=== PATIENT | male | born 1955 | race Caucasian/White ===

== ENCOUNTER → 2017-09-22 16:04 | Outpatient (CLI) | payer OTHER, SELFPAY ==
[2017-09-22 16:49] LABS: Calcium 9.2 mg/dL (8.4-10.2); Uric Acid 6.2 mg/dL (3.5-8.5)
[2017-09-24 15:21] LABS: Parathyroid Hormone Int 53 pg/mL (14-64)
== END ==
PROVIDERS: Family Provider Physician Assistant; PCP Physician Assistant; Visit Provider Specialist
DX: N20.0 Calculus of kidney (principal)
CPT/HCPCS: 36415; 82310; 83970; 84550

== ENCOUNTER → 2017-09-26 13:24 | Outpatient (CLI) | payer OTHER, SELFPAY ==
--- NOTE | 2017-09-26 | DI.RAD.S_ITS ---
PROCEDURE: XR KUB INDICATIONS: kidney stones TECHNIQUE: One view of the abdomen acquired. COMPARISON: [facility], , KUB XRAY (1 VIEW ABDOMEN), 07/18/2017, 11:39. FINDINGS: Surgical changes and devices: None. Bowel: Bowel gas pattern is normal. Soft tissues: There is a 4 mm calcification overlying the lower pole of the right kidney. On the second view, there is suggestion of 2 small calcifications over the lower pole of the left kidney. Bones: No suspicious bony lesions. IMPRESSION: Possible bilateral nephrolithiasis. Advise CT KUB for further evaluation if indicated. Dictated by: Tin Campuzano M.D. on 09/26/2017 at 13:40 Approved by: Tin Campuzano M.D. on 09/26/2017 at 13:45
== END ==
PROVIDERS: Family Provider Physician Assistant; PCP Physician Assistant; Visit Provider Specialist
DX: N20.0 Calculus of kidney (principal)
CPT/HCPCS: 74018

== ENCOUNTER → 2017-11-22 16:31 | Outpatient (CLI) | payer OTHER, SELFPAY ==
--- NOTE | 2017-11-22 | DI.RAD.S_ITS ---
PROCEDURE: XR KUB INDICATIONS: KIDNEY STONES TECHNIQUE: One view of the abdomen acquired. COMPARISON: [facility], CR, XR KUB, 09/26/2017, 13:04. FINDINGS: Surgical changes and devices: None. Bowel: Bowel gas pattern is normal. Soft tissues: No suspicious abdominal calcifications are seen on the current study. Previously noted small calcifications in bilateral lower pole kidneys are no longer seen. Visualized solid organ contours appear normal in size. Bones: No suspicious bony lesions. IMPRESSION: No renal calcification is seen on the current study. Dictated by: Luke Toro M.D. on 11/22/2017 at 17:45 Approved by: Luke Toro M.D. on 11/22/2017 at 17:48
[2017-11-22 21:09] LABS: Prostate Specific Antigen 0.629 ng/mL (0.10-4.00)
== END ==
PROVIDERS: Family Provider Physician Assistant; PCP Physician Assistant; Visit Provider Specialist
DX: N40.1 Benign prostatic hyperplasia with lower urinary tract symptoms (principal); N20.0 Calculus of kidney
CPT/HCPCS: 36415; 74018; 84153

== ENCOUNTER → 2018-06-21 15:16 | Outpatient (CLI) | payer OTHER, SELFPAY ==
--- NOTE | 2018-06-21 15:21 | DI.RAD.S_ITS ---
PROCEDURE: XR KUB INDICATIONS: KIDNEY STONES TECHNIQUE: One view of the abdomen acquired. COMPARISON: [facility], CR, XR KUB, 11/22/2017, 16:36. FINDINGS: Surgical changes and devices: None. Bowel: Bowel gas pattern is nonobstructive. Large amount of stool is seen throughout the colon and rectal vault.. Soft tissues: No suspicious abdominal calcifications. Visualized solid organ contours appear normal in size. Presumed pelvic phleboliths are unchanged Bones: No suspicious bony lesions. IMPRESSION: No radiographically visible renal calculi Dictated by: Phogn Garcia M.D. on 06/21/2018 at 16:40 Approved by: Phong Garcia M.D. on 06/21/2018 at 16:43
[2018-06-21 17:32] LABS: Prostate Specific Antigen 0.547 ng/mL (0.10-4.00)
== END ==
PROVIDERS: Family Provider Physician Assistant; PCP Physician Assistant; Visit Provider Specialist
DX: N20.0 Calculus of kidney (principal); N40.1 Benign prostatic hyperplasia with lower urinary tract symptoms
CPT/HCPCS: 36415; 74018; 84153

== ENCOUNTER → 2018-10-24 13:59 | Outpatient (CLI) | payer OTHER, SELFPAY ==
--- NOTE | 2018-10-24 | DI.CT.S_ITS ---
PROCEDURE: CT SOFT TISSUE NECK WO/W CON INDICATIONS: SIALOITHIASIS TECHNIQUE: Before and after the administration of intravenous contrast, 2.0 mm axial sections acquired through the neck and down to the mary. Additional 2.0 mm coronal and sagittal reformats were generated of the contrast enhanced images. For radiation dose reduction, the following was used: automated exposure control. COMPARISON: None. FINDINGS: Image quality: Excellent. Glands: The parotid glands appear symmetric and normal in size and morphology. The right submandibular gland is slightly more prominent in size and demonstrates increased enhancement compared to the contralateral left submandibular gland. The right submandibular duct is mildly dilated. No opaque stones are seen in the right submandibular gland. Deep to the skin marker for the palpable abnormality is a 4 mm enhancing nodule in the right submandibular area, most likely a small submandibular lymph node. There is a 6 x 4 mm low-density nodule in the right thyroid lobe. A 6 mm soft tissue nodule anterior to the left thyroid lobe is probably a parathyroid adenoma. Lymph nodes: No enlarged lymph nodes seen throughout the neck. Small cervical lymph nodes are present bilaterally, likely reactive. Vessels: Visualized vasculature appears patent. Neck spaces: The oropharynx, nasopharynx, and pharynx demonstrate no mucosal lesions. The vocal cords, false vocal cords, pyriform sinuses, epiglottis, vallecula, and tongue base all appear normal. Extramucosal spaces appear unremarkable. Miscellaneous: Visualized lungs appear clear. Superficial soft tissues appear normal. Bones: No suspicious bony lesions. Visualized sinuses and mastoids appear unremarkable. IMPRESSION: 1. No salivary gland stones identified. 2. Slightly enlargement of the right submandibular gland which demonstrates increased enhancement compared to the contralateral left submandibular gland. The right submandibular duct is mildly dilated. It is possible that the patient has recently passed stone. 3. Deep to the skin marker is a 4 mm enhancing nodule adjacent to the right submandibular gland, most likely a small normal sized subcentimeter lymph node. 4. Possible 6 x 4 mm parathyroid adenoma anterior to the left thyroid lobe. Please correlate with serum calcium and parasellar hormone levels. Dictated by: Kumar Thrasher M.D. on 10/24/2018 at 17:00 Approved by: Kumar Thrasher M.D. on 10/24/2018 at 18:09
[2018-10-24 14:30] LABS: BUN Creatinine Ratio 12.7 (6-22); Blood Urea Nitrogen 14 mg/dL (9-20); Estimated Glomerular Filt Rate > 60.0 mL/min (>60)
== END ==
PROVIDERS: PCP Physician Assistant; Visit Provider Otolaryngology Facial Plastic Surgery
DX: K11.5 Sialolithiasis (principal); E04.2 Nontoxic multinodular goiter
CPT/HCPCS: 36415; 70492; 82565; 84520; Q9967

== ENCOUNTER 2020-06-28 14:23 | Emergency (ER) | payer OTHER, MEDICAID, SELFPAY ==
[2020-06-28 14:34] VITALS: BP 111/67; PULSE 57; RESP 16; TEMP 36.8; O2SAT 96; BMI 23.3
--- NOTE | 2020-06-28 14:34 | DI.RAD.S_ITS ---
PROCEDURE: XR KNEE RT 3V INDICATIONS: skiing accident TECHNIQUE: 3 views of the knee were acquired. COMPARISON: None. FINDINGS: Bones: No fractures or dislocations. No suspicious bony lesions. Soft tissues: No joint effusion. No suspicious soft tissue calcifications. IMPRESSION: Normal knee radiographs. Dictated by: Augie Hubbard M.D. on 06/28/2020 at 14:58 Approved by: Augie Hubbard M.D. on 06/28/2020 at 14:58
--- NOTE | 2020-06-28 15:15 | ED_ITS ---
HPI - Extremity Injury (Lower) <TORRIE Torrez - Last Filed: 06/28/20 15:51> General Chief Complaint: Extremity Injury, Lower Stated Complaint: hurt right knee skiing Time Seen by Provider: 06/28/20 14:33 Source: patient Mode of arrival: Family Vehicle Limitations: no limitations History of Present Illness HPI Narrative: This is a 80 year female, nonsmoker, who has past medical history significant for hypothyroidism, kidney stone presents to ED with chief complain of right lateral knee pain. Patient injured right knee while skiing this morning at [employer] when it try to avoid colliding with the child and had right knee externally rotated accidentally. Patient states and minor knee injury in the past with hyper extension but did not require any surgeries. Patient reports pain increases with elevating the affected knee during driving to step on a brake and had to use left leg to press on a pedal. Patient states he was able to stand and bear weight. He had used ibuprofen 600 mg 2 hours before coming into ED and rates pain as 1/10. Patient reports intact sensation in is able to move toes distally. Patient is able to flex and extend knee without difficulty. Related Data Home Medications Medication Instructions Recorded Confirmed beclomethasone dipropionate [Qvar] 1 puff INH BID #0 10/20/10 Grape Seed Extract (#GRAPE SEED) 25 mg PO QDAY #0 04/27/12 omeprazole 40 mg PO QDAY #0 04/27/12 Previous Rx's Medication Instructions Recorded testosterone [AndroGel] 10 % TP Q DAY #60 gm 09/13/12 ondansetron [Zofran ODT] 4 mg SUBLINGUAL Q6HP PRN #10 odt 03/30/17 oxycodone-acetaminophen [Percocet] 1 - 2 tab PO Q6HP PRN #10 tab 03/30/17 tamsulosin [Flomax] 0.4 mg PO QDAY #7 cap 03/30/17 Allergies Allergy/AdvReac Type Severity Reaction Status Date / Time No Known Allergies Allergy Uncoded 06/28/20 14:41 Review of Systems <TORRIE Torrez - Last Filed: 06/28/20 15:51> Review of Systems Narrative: General: Denies fever, chills, fatigue, malaise, sweats. HEENT: Denies sinus pain, ear pain, sore throat, difficulty swallowing, dizziness. Respiratory: Denies dyspnea, cough, wheezing, hemoptysis, sputum. Cardiovascular: Denies chest pain, palpitations, orthopnea, edema. Gastrointestinal: Denies nausea, vomiting, abdominal pain, diarrhea, constipation, melena. : Denies dysuria, frequency, incontinence, hematuria, urinary retention. Musculoskeletal: See HPI Skin: Denies rash, skin lesions, or other. Neurologic: Denies weakness, headache, numbness, change in speech, confusion, seizures, incoordination. Psychiatric: No concerning psychosocial issues. 12-point review of systems is negative except for those stated above. Patient History <TORRIE Torrez - Last Filed: 06/28/20 15:51> Medical History Hypothyroidism Social History Smoking Status: Never smoker Smoking Status: Never smoker alcohol intake frequency: 0-2 drinks per day Alcohol type: beer and wine Substance Use Type: marijuana Exam <TORRIE Torrez - Last Filed: 06/28/20 15:51> Narrative Exam Narrative: General appearance: well developed, well nourished, in no acute distress. Head: normocephalic, atraumatic, no scalp lesions, non-tender. ENT: Hearing grossly intact. Airway patent. Neck/Thyroid: neck supple, full range of motion, no visible masses or meningeal signs. No JVD, non-tender without lymphadenopathy. Skin: no suspicious rashes, lesions over visible areas. Warm and dry and appropriate color for ethnicity. Heart: no clubbing, no cyanosis, no edema. Lungs: Breathing even and unlabored. No stridor. No accessory muscles used. Able to speak in full sentences. Chest: normal shape and expansion. Abdomen: non-obese, non-distended. Neurologic: alert and oriented. Cognitive exam, [employer] and PNS grossly intact on informal exam. Psych: good eye contact, normal affect. Initial Vital Signs Initial Vital Signs: Vital Signs Temperature 98.2 F 06/28/20 14:34 Pulse Rate 57 L 06/28/20 14:34 Respiratory Rate 16 06/28/20 14:34 Blood Pressure 111/67 06/28/20 14:34 Pulse Oximetry 96 06/28/20 14:34 Extrem Right lower extremity: knee Details: normal to inspection, tenderness Location: of the lateral joint line, normal ROM and Rex's Test Details: positive laterally; no swelling, no ecchymosis, no crepitus and no deformity, lower leg Details: normal to inspection; no tenderness and no localized swelling, ankle Details: normal to inspection; no tenderness and foot Details: normal capillary refill, toes with normal ROM, vascular exam Details: dorsalis pedis pulse present and motor-sensory exam Details: light-touch normal <Damien Donato DO - Last Filed: 06/28/20 16:01> Initial Vital Signs Initial Vital Signs: Vital Signs Temperature 98.2 F 06/28/20 14:34 Pulse Rate 57 L 06/28/20 14:34 Respiratory Rate 16 06/28/20 14:34 Blood Pressure 111/67 06/28/20 14:34 Pulse Oximetry 96 06/28/20 14:34 Procedures <TORRIE Torrez - Last Filed: 06/28/20 15:51> Orthopedic Splinting/Casting R knee: Side: right Lower Extremity Injury Location: knee Lower Extremity Immobilizer: Ronnie wrap Post splinting neuro exam: intact Post splinting vascular exam: intact Placed by: Nursing Scores <CASH TorrezP - Last Filed: 06/28/20 15:51> GCS [place] coma scale eye opening: Spontaneous [place] coma scale verbal response: Orientated [place] coma scale motor response: Obey commands [place] coma scale total score: 15 Course <TORRIE Torrez - Last Filed: 06/28/20 15:51> Orders Ordered: ED Orders 06/28/20 14:34 XR knee RT 3V Stat Vital Signs Vital signs: Vital Signs - 8 hr 06/28/20 14:34 06/28/20 15:43 Temperature 98.2 F Pulse Rate 57 L 61 Respiratory Rate 16 Blood Pressure 111/67 134/77 Pulse Oximetry 96 96 <Damien Donato DO - Last Filed: 06/28/20 16:01> Orders Ordered: ED Orders 06/28/20 14:34 XR knee RT 3V Stat Vital Signs Vital signs: Vital Signs - 8 hr 06/28/20 14:34 06/28/20 15:43 Temperature 98.2 F Pulse Rate 57 L 61 Respiratory Rate 16 Blood Pressure 111/67 134/77 Pulse Oximetry 96 96 MDM - Extremity Injury (Lower) <TORRIE Torrez - Last Filed: 06/28/20 15:51> Differential Diagnosis Differential diagnosis: Likely acute internal derangement of knee and other (right knee sprain) Medical Records Attestation: I reviewed the patient's medical records. Imaging Data XR-Knee RT: Radiologist's Impression: [address] [id number] ReportSigned Patient: Kiko Fraser LMR#: [id number]: 7Acct:[id number]/Sex: 64 / MDate of Service: 06/28/20Loc: EDAccession Number: [id number] Procedure: XR knee RT 3V Ordering Provider: Damien Donato D.O. PROCEDURE: XR KNEE RT 3V INDICATIONS: skiing accident TECHNIQUE: 3 views of the knee were acquired. COMPARISON: None. FINDINGS: Bones: No fractures or dislocations. No suspicious bony lesions. Soft tissues: No joint effusion. No suspicious soft tissue calcifications. IMPRESSION: Normal knee radiographs. Dictated by: Augie Hubbard M.D. on 06/28/2020 at 14:58 Approved by: Augie Hubbard M.D. on 06/28/2020 at 14:58 [facility] Narrative Medical decision making narrative: This is a 64-year-old pleasant gentleman presents to ED with spouse with chief complain of right lateral knee pain after injured during skiing by externally rotated when he try to avoid colliding with the child. Patient has intact sensation and is able to move toes. He is able to bear weight but pain increases when he elevate affected leg/knee. Physical exam was unremarkable except Rex's test positive for lateral knee pain. X- ray does not show acute findings. Applied acewrap for support and immobil ization. Patient declined crutches stating not needed. Return precautions discussed with patient and patient advised to use RICE therapy and follow-up with primary care physician if symptoms persists. Patient verbalized understanding and agreement with the treatment plan. Discharge Plan Departure Patient Disposition: Home Clinical Impression: Knee sprain Qualifiers: Encounter type: initial encounter Involved ligament of knee: unspecified ligament Laterality: right Qualified Code(s): S83.91XA - Sprain of unspecified site of right knee, initial encounter Instructions: DI for Knee Sprain Activity Restrictions/Additional Instructions: You have been diagnosed with [right lateral knee sprain. X-ray test does not show acute findings such as fractures, dislocations or joint effusion.]. What to do: *Take your medications as directed. Please take [id number] Tylenol and or Motrin as needed for discomfort. Motrin helps with decrease inflammation and helps with pain. Please take Motrin with food to decrease GI irritations. You can use Ronnie wrap on affected knee to help with immobilization and support. *Follow up with your primary care provider in 2-3 days, call for an appointment. Let them know you were seen in the ED and that we asked you to be seen in follow up. If pain persists greater than 10 days to 2 weeks, please consider reimaging test on affected knee. *Return to ED if you have any new, worsening, or concerning symptoms, such as [chest pain, breathing difficulty, unable to tolerate fluids, fever, tingling/numbness/weakness to affected knee or any acute concerns]. Prescriptions: No Action beclomethasone dipropionate [Qvar] 80 MCG/PUFF aerosol 1 puff INH BID Qty: 0 RF: 0 omeprazole 40 MG capsule,delayed release(DR/EC) 40 mg PO QDAY Qty: 0 RF: 0 Grape Seed Extract (#GRAPE SEED) 25 mg PO QDAY Qty: 0 RF: 0 testosterone [AndroGel] 1 % gel in packet 10 % TP Q DAY Qty: 60 RF: 3 oxycodone-acetaminophen [Percocet] 5 MG/325 MG tablet 1 - 2 tab PO Q6HP PRNQty: 10 RF: 0 ondansetron [Zofran ODT] 4 MG tablet,disintegrating 4 mg Sublingual Q6HP PRNQty: 10 RF: 0 tamsulosin [Flomax] 0.4 MG capsule,extended release 24hr 0.4 mg PO QDAY Qty: 7 RF: 0 Referrals: Elena Vega PA-C [Primary Care Provider] - <Damien Donato DO - Last Filed: 06/28/20 16:01> Cosign ED Attending Cosignature Attestation: Dr Donato Co-Sign Statement: I was available for consultation during this patient's emergency department visit. This chart is signed by myself for administrative purposes only. I did not have direct contact with this patient during this visit. They were seen independently by the APC.
[2020-06-28 15:43] VITALS: BP 134/77; PULSE 61; O2SAT 96
== END 2020-06-28 15:46 | disposition home or self-care (01) ==
PROVIDERS: Emergency Provider Nurse Practitioner Family; PCP Physician Assistant
DX: S83.91XA Sprain of unspecified site of right knee, initial encounter (principal); Y93.23 Activity, snow (alpine) (downhill) skiing, snowboarding, sledding, tobogganing and snow tubing
CPT/HCPCS: 73562; 99283

== ENCOUNTER 2022-03-08 07:02 | Day surgery (SDC) | payer OTHER, SELFPAY ==
[2022-03-08] VITALS (8 sets, daily range): BP systolic 113–133; BP diastolic 70–78; PULSE 46–58; RESP 12–18; TEMP 36.5–36.6; O2SAT 97–99; BMI 23.3
--- NOTE | 2022-03-08 | PATH_ITS ---
[facility] Accession Number: [id number] . 01 Material submitted: . colon - COLON POLYPS . 01 Diagnosis: Colon, Polyps, Biopsies: Tubular adenoma in one of three fragments. One fragment of colonic mucosa ith thickened muscularis mucosae, consistent with benign leiomyoma. Negative for atypia and malignancy. MRV 03/09/2022 1729 Local . 01 Electronically signed: . Lydia Esquivel MD, Pathologist NPI- [id number] . 01 Gross description: . COLON POLYPS: Received in formalin are 3 fragment(s) of vasquez, soft tissue measuring 0.3 x 0.2 x 0.2 cm to 0.5 x 0.5 x 0.3 cm submitted entirely in 1 cassette(s) /WYATT 03/08/2022 2228 Local . 01 Pathologist provided ICD-10: D12.6 . 01 CPT . 586022 Specimen Comment: A courtesy copy of this report has been sent to [phone] Performed at: 01 [facility] [address] [place] [id number] MD Gilson Rojas MD Phone: [phone]
[2022-03-08] MEDS: SODIUM CHLORIDE 0.9% 1,000 ML 84 ML IV (07:39)
[2022-03-08 07:50] LABS: COVID19 -Nasal RAPID Negative (Negative)
--- NOTE | 2022-03-08 07:59 | PM.HP.1 ---
History of Present Illness History of Present Illness Date Patient Seen: 03/08/22 Time Patient Seen: 07:59 Chief complaint: Colonoscopy Narrative: I reviewed the recent clinic notes. Change in bowel habit has been noted post COVID infection. No changes of late. Patient History Medical History Hypothyroidism Family & Social History Social History: household members significant other Tobacco & Substance use: Smoking Status Never smoker alcohol intake current alcohol intake frequency 0-2 drinks per day Substance Use Type does not use Meds Home Medications and Allergies Home Medications Medication Instructions Recorded Confirmed Type beclomethasone dipropionate 80 1 puff INH BID ##0 10/20/10 03/08/22 History mcg/actuation aerosol inhaler (Qvar) omeprazole 40 mg capsule,delayed 40 mg PO QDAY ##0 04/27/12 03/08/22 History release testosterone 1 % (25 mg/2.5 gram) 10 % TP Q DAY ##60 09/13/12 03/08/22 Rx transdermal gel packet (AndroGel) ondansetron 4 mg disintegrating 4 mg sublingual Q6HP PRN ##10 03/30/17 03/08/22 Rx tablet (Zofran ODT) tamsulosin 0.4 mg capsule (Flomax) 0.4 mg PO QDAY #7 caps 03/30/17 03/08/22 Rx Allergies Allergy/AdvReac Type Severity Reaction Status Date / Time No Known Drug Allergies Allergy Verified 03/08/22 07:48 Review of Systems Review of Systems ROS: Yes All systems reviewed with the patient and are negative except as otherwise documented Exam Vital Signs (past 8 hours): - 03/08/22 07:26 Temperature 97.7 F Pulse Rate 54 L Respiratory Rate 16 Blood Pressure 113/70 Pulse Oximetry 97 Oxygen Delivery Method Room Air Oxygen Delivery Method Room Air Const General: cooperative HENMT Head: normal to inspection Eyes General: appearance normal, both eyes and all related structures Neck Neck: normal visual inspection Chest Chest: normal inspection of the chest Resp Effort & Inspection: normal respiratory effort Cardio Rate: regular rate GI Inspection: normal to inspection Skin General: no rashes or lesions noted Neuro General: patient alert and patient awake Extrem General: normal to inspection and no pedal edema Psych Appearance: grossly normal Objective Labs Labs: Laboratory Results - last 24 hr 03/08/22 07:27 SARS-CoV-2 (PCR) Negative Assessment & Plan Assessment & Plan narrative: 66-year-old male with a change in bowel habit. Colonoscopy is pursued today. Time Spent With Patient Critical Care time: I spent a total of [] minutes of critical care time on this patient's care today; this time is exclusive of procedural time.
--- NOTE | 2022-03-08 08:00 | PM.PREOP ---
Pre-operative Note COVID-19 COVID-19 status: Negative Result date/Date tested (Pos, Neg/Pending): 03/08/22 Criteria for continued procedure: Possibility delay results in more complex future surgery or treatment Interval Note History & Physical reviewed/Exam performed by Physician: Yes Changes to H&P: No ASA Class (for procedural sedation): II
--- NOTE | 2022-03-08 08:34 | P.OP.COLON_ITS ---
Operative Date/Time/Diagnoses Date of procedure: 03/08/22 Time of procedure: 08:35 Pre-op diagnosis: Change in bowel habit constipation. Post-op diagnosis: same Procedure & Clinicians Study performed: Colonoscopy with hot and cold snare polypectomy Same procedure as scheduled: Yes Indications: Change in bowel habit constipation Surgeon: Jone Osorio Procedure Notes SCOAP/Timeout: Done Procedure in detail: After the risks and benefits were explained, written and verbal informed consent was obtained. The patient was brought into the procedure room and placed into the left lateral decubitus position. Please see nurse regional economist notes for sedation details. Digital rectal examination was accomplished. The scope was introduced into the patient and advanced under direct visualization to the cecum as identified by the appendiceal orifice and ileocecal valve. The scope was slowly withdrawn to carefully examine the mucosa for any defects or lesions. Comprehensive imaging was accomplished throughout the rectum including the dentate line. The colon was decompressed, the scope was then removed from the patient who tolerated the procedure well. Pediatric colonoscope Bowel prep fair but with copious irrigation and suction this was rendered adequate. Scope withdrawal time: 13 minutes Sedation minutes: 29 Complications: none Impression: The patient had a fairly redundant colon. The stiffening rito was required for cecal intubation. There were 3 small polyps ranging in size from 4-6 mm. The smallest polyp was removed with cold snare. The other 2 with hot snare. Two of these came from transverse and 1 from the descending. They were all submitted together as ?colon polyps?. Grade 1 to grade 2 hemorrhoids were noted on direct views. Endoscopic diagnosis 1. Colon polyps 2. Grade 1-2 hemorrhoids 3. Redundant colon Post-procedure Plan for aftercare: 1. Await histopathology. 2. Continue fiber based bowel regimen. 3. Timing of surveillance colonoscopy will be contingent on histology. Disposition: PACU
== END 2022-03-08 09:29 | disposition home or self-care (01) ==
PROVIDERS: PCP Physician Assistant; Referring Provider Internal Medicine Gastroenterology; Visit Provider Internal Medicine Gastroenterology
PROC: 0DJD8ZZ Inspection of Lower Intestinal Tract, Via Natural or Artificial Opening Endoscopic (ICD-10-PCS; CPT 45378; principal; 2022-03-08 08:00)
DX: K59.00 Constipation, unspecified (principal); E11.9 Type 2 diabetes mellitus without complications; J45.909 Unspecified asthma, uncomplicated; E03.9 Hypothyroidism, unspecified; Z79.84 Long term (current) use of oral hypoglycemic drugs; Z20.822 Contact with and (suspected) exposure to COVID-19; K64.0 First degree hemorrhoids; D12.6 Benign neoplasm of colon, unspecified
CPT/HCPCS: 45385; 87635; C9803; J2704

== ENCOUNTER 2022-08-25 18:20 | Emergency (ER) | payer OTHER, SELFPAY ==
[2022-08-25 18:27] VITALS: BP 145/85; PULSE 53; RESP 18; TEMP 36.7; O2SAT 98; BMI 22.8
--- NOTE | 2022-08-25 18:31 | DI.US.S_ITS ---
PROCEDURE: US SCROTUM INDICATIONS: PAIN, SWELLING LEFT TESTICLE TECHNIQUE: Real-time scanning was performed of the scrotum and testicles, with image documentation. Color and pulse Doppler interrogation was performed of both testicles. COMPARISON: None. FINDINGS: Right: Testicle is normal in size at 3.7 x 1.5 x 2.5 cm, and homogenous in echotexture. Epididymis is normal in overall size and morphology. No hydrocele or varicoceles. Overlying scrotal skin is thickened at 4 mm Left: Testicle is normal in size at 2.7 x 1.9 x 2.4 cm, and homogeneous in echotexture. Epididymis is normal in overall size and morphology. No hydrocele or varicoceles. Overlying scrotal skin is thickened at 4 mm. Doppler: Color and pulse Doppler demonstrate normal and symmetric arterial flow in both testicles. There is increased vascularity in the bilateral epididymes. IMPRESSION: 1. Findings suggestive of bilateral epididymitis. 2. Bilateral scrotal thickening, which may indicate infection, inflammation, or edema. Dictated by: Shlomo Tomlin M.D. on 08/25/2022 at 19:33 Approved by: Shlomo Tomlin M.D. on 08/25/2022 at 19:34
[2022-08-25 19:46] VITALS: BP 171/88; PULSE 52; RESP 18; O2SAT 99
--- NOTE | 2022-08-25 19:50 | ED.MALEGU ---
HPI - Male Genitourinary General Chief complaint: Urogenital-Male Stated complaint: left testicle swelling and soreness Time Seen by Provider: 08/25/22 19:22 Source: patient Mode of arrival: Ambulatory History of Present Illness HPI Narrative: Patient here for left testicular pain and swelling. Started around 10:00 a.m. today worsened at 4:00 p.m.. Did have mild left flank pain earlier today but it has resolved. Earlier in the week did have right flank pain. Mild right testicle pain but that resolved. Patient is monogamous, is at bedside. No urinary complaints. No fever chills. No nausea or vomiting. No hematuria or urinary frequency or urgency. Patient states has history of kidney stone but it does not feel the same. He thinks he is had epididymitis before and this may be similar. No recent illness. No fever chills. No cough cold or congestion. Related Data Home Medications Medication Instructions Recorded Confirmed beclomethasone dipropionate 80 1 puff INH BID ##0 10/20/10 03/08/22 mcg/actuation aerosol inhaler (Qvar) omeprazole 40 mg capsule,delayed 40 mg PO QDAY ##0 04/27/12 03/08/22 release Previous Rx's Medication Instructions Recorded testosterone 1 % (25 mg/2.5 gram) 10 % TP Q DAY ##60 09/13/12 transdermal gel packet (AndroGel) ondansetron 4 mg disintegrating 4 mg sublingual Q6HP PRN ##10 03/30/17 tablet (Zofran ODT) tamsulosin 0.4 mg capsule (Flomax) 0.4 mg PO QDAY #7 caps 03/30/17 levofloxacin 500 mg tablet 500 mg PO DAILY #9 tabs 08/25/22 Allergies Allergy/AdvReac Type Severity Reaction Status Date / Time [id number] Reductase AdvReac Cramping Verified 08/25/22 18:27 Inhibitor of the Muscles Review of Systems Review of Systems Narrative: GENERAL: negative chills, fatigue, malaise, fever, sweats. HEENT: negative sinus pain, ear pain, sore throat RESPIRATORY: negative dyspnea, cough CARDIOVASCULAR: negative chest pain, palpitations GASTROINTESTINAL: negative nausea, vomiting, abdominal pain : negative dysuria, frequency, hematuria, positive testicular pain MUSCULOSKELETAL: negative muscle or bony pain SKIN: negative rash, skin lesions NEUROLOGIC: negative weakness, numbness ROS Unobtainable: All systems reviewed & are unremarkable except as noted in HPI and below Patient History Medical History Hypothyroidism Social History household members: significant other Smoking Status: Never smoker alcohol intake: current Smoking Status: Never smoker alcohol intake frequency: 0-2 drinks per day Alcohol type: beer and wine Substance Use Type: does not use Exam Narrative Exam Narrative: GENERAL: in no distress, not toxic not dyspneic HEAD: Normocephalic. EYES: Pupils equal round ENT: Mucous membranes moist. NECK: Trachea midline. CARDIOVASCULAR: Regular rate and rhythm without murmurs RESPIRATORY: Clear to auscultation. Breath sounds equal bilaterally. No wheezes, rales, or rhonchi. GASTROINTESTINAL: Abdomen soft, non-tender : No lesions on penis. No urethral discharge. Right testicle nontender no epididymal tenderness. No palpable inguinal hernia bilaterally. No hernia with digital insertion in bilateral scrotal sacs. Left testicle is edematous and tender to touch at the epididymis. No lesions. No crepitus. No signs of Zachary's. EXTREMITIES: No gross deformities. BACK: No flank tenderness. NEURO: AOx4. SKIN: Warm and dry PSYCH: Not anxious, is cooperative Initial Vital Signs Initial Vital Signs: Vital Signs Temperature 98.1 F 08/25/22 18:27 Pulse Rate 53 L 08/25/22 18:27 Respiratory Rate 18 08/25/22 18:27 Blood Pressure 145/85 H 08/25/22 18:27 Pulse Oximetry 98 08/25/22 18:27 Oxygen Delivery Method Room Air 08/25/22 18:27 Course Orders Ordered: Discontinued Medications Levofloxacin (Levofloxacin 250 Mg Tablet) 500 mg PO NOW ONE Stop: 08/25/22 19:47 Last Admin: 08/25/22 20:11 Dose: 500 mg Documented By: MICHAEL Vital Signs Vital signs: Vital Signs - 8 hr 08/25/22 18:27 08/25/22 19:46 Temperature 98.1 F Pulse Rate 53 L 52 L Respiratory Rate 18 18 Blood Pressure 145/85 H 171/88 H Pulse Oximetry 98 99 Oxygen Delivery Method Room Air Room Air MDM - Male Genitourinary Lab Data Labs: Urine Dip Bedside Urine Glucose Negative Bedside Urine Bilirubin - Negative Bedside Urine Ketone - Negative Urine Specific [place] 1.020 Bedside Urine Occult Blood - Negative Bedside Urine pH 6.0 Bedside Urine Protein - Negative Bedside Urine Urobilinogen - Negative Bedside Urine Nitrite - Negative Bedside Urine Leukocytes - Negative Esterase Imaging Data Scrotal ultrasound: Radiologist's Impression: FINDINGS:? ? Right:? Testicle is normal in size at 3.7 x 1.5 x 2.5 cm, and homogenous in echotexture.? Epididymis is normal in overall size and morphology.? No hydrocele or varicoceles.? Overlying scrotal skin is thickened at 4 mm ? Left:? Testicle is normal in size at 2.7 x 1.9 x 2.4 cm, and homogeneous in echotexture.? Epididymis is normal in overall size and morphology.? No hydrocele or varicoceles.? Overlying scrotal skin is thickened at 4 mm. ? Doppler:? Color and pulse Doppler demonstrate normal and symmetric arterial flow in both testicles.? There is increased vascularity in the bilateral epididymes. ? IMPRESSION:? 1. Findings suggestive of bilateral epididymitis. 2. Bilateral scrotal thickening, which may indicate infection, inflammation, or edema. [facility] Narrative Medical decision making narrative: Patient here for left testicular pain and swelling. Started around 10:00 a.m. today worsened at 4:00 p.m.. Did have mild left flank pain earlier today but it has resolved. Earlier in the week did have right flank pain. Mild right testicle pain but that resolved. Patient is monogamous, is at bedside. No urinary complaints. No fever chills. No nausea or vomiting. No hematuria or urinary frequency or urgency. Patient states has history of kidney stone but it does not feel the same. He thinks he is had epididymitis before and this may be similar. No recent illness. No fever chills. No cough cold or congestion. After history and exam urinalysis scrotal ultrasound [facility] CC: Left testicular pain Complicating co-morbidities: History of kidney stone history of epididymitis Data collected from: Patient and Medical records reviewed: No previous visits here for this complaint Differential considered: Includes but not limited to epididymitis varicocele hydrocele testicular torsion testicular cancer testicular abscess kidney stone hernia Exam documented above, pertinent findings include: Tender epididymis on the left Lab Test results independently reviewed as above. Pertinent findings: Urinalysis normal Imaging studies independently reviewed: Bilateral scrotal ultrasound [id number]-right epididymitis Consultations: None indicated tonight Treatments: Levaquin Re-evaluations: Reviewed results with patient. Reviewed with patient and Levaquin use risks and benefits. He would not do sports activity. Risk of tendon and cartilage injury reviewed with him. He has no history of arrhythmia. Currently not on Zofran. He agrees with Levaquin. Return precautions reviewed with him. They desire discharge home Discussion: Appropriate for discharge home. No blood work indicated. No fever chills. Onset this morning. Patient still making urine. Exam and imaging otherwise reassuring. Levaquin has been started here tonight. Urology referral given. They desire discharge home. Pain is controlled. Diagnosis: Epididymitis Discharge Plan Departure Patient Disposition: Home Clinical Impression: Epididymitis, Calculus of left kidney Instructions: DI for Epididymitis Activity Restrictions/Additional Instructions: No sexual activity until seen by urologist. Please call provided urology office morning for office re-evaluation within a week. Continue antibiotic Levaquin daily, continue tomorrow, be sure to complete full course. No sports activity mild taking medication. Return if worse or for any questions or concerns. Keep well hydrated. Prescriptions: New levofloxacin 500 mg tablet 500 mg PO DAILY Qty: 9 0RF No Action Qvar 80 MCG/PUFF aerosol 1 puff INH BID Qty: 0 omeprazole 40 MG capsule,delayed release(DR/EC) 40 mg PO QDAY Qty: 0 testosterone [AndroGel] 1 % gel in packet 10 % TP Q DAY Qty: 60 3RF ondansetron [Zofran ODT] 4 MG tablet,disintegrating 4 mg Sublingual Q6HP PRNQty: 10 0RF tamsulosin [Flomax] 0.4 MG capsule,extended release 24hr 0.4 mg PO QDAY Qty: 7 0RF Referrals: Elena Vega PA-C [Primary Care Provider] - Natalya Juarez MD [Non-Staff] - Stand Alone Forms: Patient Portal/API
[2022-08-25] MEDS: levoFLOXacin 250 MG TABLET 500 MG PO (20:11)
[2022-08-25 20:24] VITALS: BP 147/83; PULSE 54; RESP 18; O2SAT 96
== END 2022-08-25 20:26 | disposition home or self-care (01) ==
PROVIDERS: Emergency Provider Emergency Medicine; PCP Physician Assistant
DX: N45.1 Epididymitis (principal); N20.0 Calculus of kidney
CPT/HCPCS: 76870; 81003; 93975; 99283

== ENCOUNTER → 2022-11-21 09:39 | Outpatient (CLI) | payer OTHER, SELFPAY ==
--- NOTE | 2022-11-21 09:41 | DI.MRI.S_ITS ---
PROCEDURE: MR SHOULDER LT WO CON INDICATIONS: SHOULDER PAIN/ROTATOR CUFF DISORDER SUSPECTED TECHNIQUE: Noncontrast oblique coronal T2 fast spin echo with fat saturation, oblique sagittal T1 spin echo and T2 fast spin echo with fat saturation, axial T1 spin echo and T2 fast spin echo with fat saturation through the shoulder. COMPARISON: None. FINDINGS: Image quality: Excellent. Rotator cuff: Low-grade partial-thickness intrasubstance and bursal surface tears of the mid/upper, and lower subscapularis tendon at the humeral insertion site extending to the musculotendinous junction. Low-grade articular surface and bursal surface tears of the mid and posterior supraspinatus tendon at the humeral insertion site. Infraspinatus and teres minor tendons are intact. No rotator cuff atrophy. Bones and bursae: No bone marrow contusions or fractures. Moderate glenohumeral and acromioclavicular joint degeneration. There is a hook osteophyte protruding inferiorly from the inferomedial humeral head, measuring roughly 20 mm craniocaudal. The acromion demonstrates conventional anatomy, without an os acromiale. No pathologic subacromial-subdeltoid or subcoracoid bursal fluid is present. Capsule and soft tissues: Diffuse tearing of the glenoid labrum is present. The long head of the biceps tendon demonstrates normal location and partial-thickness tearing. The rotator interval appears normal, without fibrosis. The coracohumeral ligament is normal in thickness. IMPRESSION: 1. Acromioclavicular and glenohumeral joint osteoarthritis. 2. Partial-thickness tears of the subscapularis and supraspinatus tendons. No full-thickness rotator cuff tear. 3. Glenoid labral tearing. 4. Partial thickness biceps tendon tearing. Dictated by: Shlomo Tomlin M.D. on 11/22/2022 at 10:55 Approved by: Shlomo Tomlin M.D. on 11/22/2022 at 11:15
== END ==
PROVIDERS: PCP Physician Assistant; Referring Provider Internal Medicine; Visit Provider Internal Medicine
DX: M75.112 Incomplete rotator cuff tear or rupture of left shoulder, not specified as traumatic (principal); M19.012 Primary osteoarthritis, left shoulder; S43.402A Unspecified sprain of left shoulder joint, initial encounter; S46.112A Strain of muscle, fascia and tendon of long head of biceps, left arm, initial encounter; M25.512 Pain in left shoulder; G89.29 Other chronic pain
CPT/HCPCS: 73221

== ENCOUNTER → 2023-01-03 12:55 | Outpatient (CLI) | payer OTHER, SELFPAY ==
[2023-01-03 17:08] LABS: Prostate Specific Antigen 0.742 ng/mL (0.10-4.00)
== END ==
PROVIDERS: PCP Physician Assistant; Referring Provider Specialist; Visit Provider Specialist
DX: N20.0 Calculus of kidney (principal)
CPT/HCPCS: 36415; 84153

== ENCOUNTER → 2023-01-05 12:40 | Outpatient (CLI) | payer OTHER, SELFPAY ==
--- NOTE | 2023-01-05 12:42 | DI.CT.S_ITS ---
PROCEDURE: CT KIDNEY URETER BLADDER (KUB) INDICATIONS: history of stones TECHNIQUE: Axial sections were acquired from the lung bases to the pubic symphysis. Coronal and sagittal reformats were performed. For radiation dose reduction, the following was used: automated exposure control, adjustment of mA and/or kV according to patient size. COMPARISON: [facility], CT, KIDNEY/ URETER/BLADDER, 03/30/2017, 16:23. FINDINGS: Image quality: Excellent. Lung bases: Unremarkable. Heart: No significant findings. URINARY: Right Kidney: No hydronephrosis. Nonobstructing calculus at the superior pole measuring 0.4 cm, unchanged. Right Ureter: No hydroureter. Left Kidney: No stones or hydronephrosis. Small peripelvic cysts. Left Ureter: No hydroureter. Bladder: Normal wall thickness. No stones. ABDOMEN: Liver: Unremarkable. Gallbladder: Unremarkable. Biliary ducts: Unremarkable. Pancreas: Unremarkable. Spleen: Unremarkable. Adrenal Glands: Unremarkable. Stomach and Bowel: Stomach, small bowel loops, and colon are unremarkable. The appendix is not identified. Peritoneum: No abnormal intraperitoneal fluid. No free air. Ventral Wall: No hernia. Abdominal Nodes: No enlarged retroperitoneal or mesenteric lymph nodes. Vessels: Aorta and inferior vena cava are normal in size. PELVIS: Pelvic Organs: Prostatomegaly. Pelvic Nodes: Unremarkable. Miscellaneous: No inguinal hernias are seen. Bones: No suspicious lesion. Bone island at the left femoral head. IMPRESSION: 1. No obstructing calculus. No hydronephrosis. 2. Small nonobstructing right kidney stone is unchanged. 3. No free fluid. Dictated by: Abisai Villalta M.D. on 01/05/2023 at 14:01 Approved by: Abisai Villalta M.D. on 01/05/2023 at 14:08
== END ==
PROVIDERS: PCP Internal Medicine; Referring Provider Specialist; Visit Provider Specialist
DX: N20.0 Calculus of kidney (principal); Z87.442 Personal history of urinary calculi
CPT/HCPCS: 74176

== ENCOUNTER 2023-01-11 16:34 | Emergency (ER) | payer OTHER, SELFPAY ==
[2023-01-11 16:43] VITALS: BP 125/81; PULSE 61; RESP 16; TEMP 36.8; O2SAT 96; BMI 23.6
--- NOTE | 2023-01-11 17:00 | ED_ITS ---
HPI - General Adult General Chief complaint: Abdominal Pain Stated complaint: bloating/not eating/dr ref Time Seen by Provider: 01/11/23 16:49 Source: patient Mode of arrival: Ambulatory History of Present Illness HPI narrative: Patient is a 67-year-old male. Recent diagnosis of Parkinson disease. No new medications. Within the past 6 months has had a routine colonoscopy which was unremarkable. Has also had an endoscopy secondary to Schatzki's ring. He is here for evaluation of worsening problems swallowing and early satiety. This has been going on for the past several months but worsening over the past several weeks. Denies any nausea or vomiting. No urinary symptoms. Does feel like he is emptying his bladder when he urinates. No prior abdominal surgeries. Has had some alternating constipation and diarrhea. He also feels like his abdomen is distended. He was advised to come to the emergency department by his primary doctor. Related Data Home Medications Medication Instructions Recorded Confirmed levothryoxine PO 11/30/22 bridger inhalation BID 11/30/22 rosuvastatin 5 mg tablet 5 mg PO DAILY 11/30/22 11/30/22 Previous Rx's Medication Instructions Recorded testosterone 1 % (25 mg/2.5 gram) 10 % TP Q DAY ##60 09/13/12 transdermal gel packet (AndroGel) tamsulosin 0.4 mg capsule 0.4 mg PO BEDTIME #90 caps 11/30/22 peg 3350-electrolytes 236 240 ml PO Q10M #4,000 mL 01/11/23 gram-22.74 gram-6.74 gram-5.86 gram solution (GaviLyte-G) Allergies Allergy/AdvReac Type Severity Reaction Status Date / Time [id number] Reductase AdvReac Cramping Verified 11/30/22 12:57 Inhibitor of the Muscles Review of Systems Constitutional Constitutional: Reports system reviewed and no additional complaints, except as documented Cardiovascular Cardiovascular: Reports system reviewed and no additional complaints, except as documented Respiratory Respiratory: Reports system reviewed and no additional complaints, except as documented Gastrointestinal Gastrointestinal: Reports system reviewed and no additional complaints, except as documented Genitourinary Genitourinary: Reports system reviewed and no additional complaints, except as documented Integumentary/Breasts Skin/Breast: Reports system reviewed and no additional complaints, except as documented Hematologic/Lymphatic On Anticoagulants: No Patient History Medical History BPH w urinary obs/LUTS H/O nephrolithotomy with removal of calculi History of asthma History of nephrolithiasis Hypothyroidism Family History Family/Other Hearing impairment Family/Other Kidney stones Hypertension Brother Hypertension Kidney stones Social History marital status: unmarried,single household members: significant other Smoking Status: Never smoker alcohol intake: current Smoking Status: Never smoker alcohol intake frequency: 0-2 drinks per day Alcohol type: beer and wine Substance Use Type: does not use Exam Initial Vital Signs Initial Vital Signs: Vital Signs Temperature 98.2 F 01/11/23 16:43 Pulse Rate 61 01/11/23 16:43 Respiratory Rate 16 01/11/23 16:43 Blood Pressure 125/81 01/11/23 16:43 Pulse Oximetry 96 01/11/23 16:43 Oxygen Delivery Method Room Air 01/11/23 16:43 HENMT Head: normal to inspection and normocephalic Resp Effort & Inspection: normal respiratory effort Auscultation: clear to auscultation bilaterally Cardio Rate: regular rate Rhythm: regular rhythm GI Inspection: normal to inspection and distended Palpation: soft, No firm, No guarding and tender Skin General: no rashes or lesions noted Neuro General: patient alert, patient awake, patient oriented x3 and moves all extremities Extrem General: normal to inspection and capillary refill normal Course Orders Ordered: ED Orders 01/11/23 16:50 CT abdomen pelvis w con Stat 01/11/23 16:55 Complete Blood Count AUTO DIFF Stat Comprehensive Metabolic Panel Stat Lipase Stat Vital Signs Vital signs: Vital Signs - 8 hr 01/11/23 16:43 Temperature 98.2 F Pulse Rate 61 Respiratory Rate 16 Blood Pressure 125/81 Pulse Oximetry 96 Oxygen Delivery Method Room Air Medical Decision Making Lab Data Lab results reviewed: Yes I reviewed the patient's lab results. 01/11/23 16:55 01/11/23 16:55 Labs: Lab Results 01/11/23 01/11/23 01/11/23 Range/Units 16:55 16:55 16:55 WBC 6.4 (4.5-11.0) X10^3/uL RBC 5.29 (4.5-5.9) X10^6/uL Hgb 16.9 (13.5-17.5) g/dL Hct 49.4 (41-53) % MCV 93.3 (80-100) fL MCH 32.0 (26-34) PG MCHC 34.3 (30-36) % RDW 13.0 (11.6-14.8) % Plt Count 188 (150-400) X10^3/uL Neut % (Auto) 66.4 (50-75) % Lymph % (Auto) 20.2 L (25-40) % [place] % (Auto) 7.5 (3-14) % Eos % (Auto) 5.0 H (2-4) % Baso % (Auto) 0.9 (0-2) % Neut # (Auto) 4200 (6248-0380) /uL Lymph # (Auto) 1300 (8810-3942) /uL [place] # (Auto) 500 (0-900) /uL Eos # (Auto) 300 (0-450) /uL Baso # (Auto) 100 (0-100) /uL Sodium 134 L (137-145) mmol/L Potassium 4.2 (3.4-5.1) mmol/L Chloride 100 (98-107) mmol/L Carbon Dioxide 24 (22-32) mmol/L BUN 14 (9-20) mg/dL Creatinine 1.02 (0.66-1.25) mg/dL Estimated GFR > 60 (>60) mL/min BUN/Creatinine Ratio 13.7 (6-22) Glucose 89 (80-110) mg/dL Calcium 9.5 (8.4-10.2) mg/dL Total Bilirubin 0.9 (0.2-1.3) mg/dL AST 30 (17-59) IU/L ALT 16 (<50) IU/L Alkaline Phosphatase 70 (38-126) U/L Total Protein 8.0 (6.3-8.2) g/dL Albumin 4.6 (3.5-5.0) g/dL Globulin 3.4 (1.7-4.1) g/dL Albumin/Globulin Ratio 1.4 (1.0-2.8) Lipase 100 (23-300) U/L Urine Dip Bedside Urine Glucose Negative Bedside Urine Bilirubin - Negative Bedside Urine Ketone - Negative Urine Specific [place] 1.005 Bedside Urine Occult Blood - Negative Bedside Urine pH 7 Bedside Urine Protein - Negative Bedside Urine Urobilinogen - Negative Bedside Urine Nitrite - Negative Bedside Urine Leukocytes - Negative Esterase Point of care testing: Urine Dip Bedside Urine Glucose Negative Bedside Urine Bilirubin - Negative Bedside Urine Ketone - Negative Urine Specific [place] 1.005 Bedside Urine Occult Blood - Negative Bedside Urine pH 7 Bedside Urine Protein - Negative Bedside Urine Urobilinogen - Negative Bedside Urine Nitrite - Negative Bedside Urine Leukocytes - Negative Esterase Imaging Data CT scan - abdomen/pelvis: Radiologist's Impression: PROCEDURE:? CT ABDOMEN PELVIS W CON ? INDICATIONS:? Decreased appetite with abdominal bloating ? TECHNIQUE:? After the administration of intravenous contrast, axial sections acquired from the lung bases to the pubic symphysis.? Coronal and sagittal reformats were performed.? For radiation dose reduction, the following was used:? automated exposure control, adjustment of mA and/or kV according to patient size.? ? COMPARISON:? [facility], CT, ABDOMEN/PELVIS WITH CONTRAST, 08/08/2015, 9:46. ? FINDINGS:? Image quality:? Excellent.? ? Lung bases:? Unremarkable. Heart:? No significant findings. ? ABDOMEN: Liver:? Unremarkable.? ? Gallbladder:? Gallbladder sludge versus small stones.? No wall thickening or pericholecystic edema to suggest acute cholecystitis.? ? Biliary ducts:? Unremarkable.? ? Pancreas:? Unremarkable.? ? Spleen:? Unremarkable.? ? Adrenal Glands:? Unremarkable.? ? Kidneys and Ureters:? Similar ureterectasis.? Nonobstructing stone on the superior calyx of the right kidney. ? Stomach and Bowel:? Large colonic stool and gas load. Peritoneum:? No abnormal intraperitoneal fluid.? No free air.? ? Ventral Wall: ? No hernias.? Abdominal Nodes:? No retroperitoneal or mesenteric adenopathy by size criteria.? Vessels:? Aorta and inferior vena cava are normal in size.? ? PELVIS: Pelvic Organs:? Prostatomegaly.? ? Bladder:? Unremarkable.? ? Pelvic Nodes: No enlarged lymph nodes.? Miscellaneous: No hernias are seen. ? ? ? Bones:? Unremarkable.? IMPRESSION:? Large colonic stool and gas load. ? Similar bilateral ureterectasis, with prostatomegaly.? Findings may indicate chronic outlet obstruction MDM Narrative Medical decision making narrative: He does have a distended abdomen but it is soft. Lab work is unremarkable. His symptoms have been going on for the past several months but worsening over the past several weeks. CT scan ordered. CT scan shows no acute pathology but does have findings that are consistent with constipation. To discussion with the patient and his regarding this. It appears that he has had constipation issues in the past. He states that the best that he is felt was after he had a prep prior to his colonoscopy. There was no indication for admission to the hospital or acute surgical consultation. We did discuss good bowel regimen. He was given return precautions. He expressed understanding and agreement. Discharge Plan Departure Patient Disposition: Home Clinical Impression: Constipation Instructions: DI for Constipation Activity Restrictions/Additional Instructions: Recommend that you continue to take all of your medications as directed. I did give you the full 4000 mL of the GoLYTELY prep however you can try doing a quarter or half of the total dose to see if this produces results. If not you can continue to take the full dose. Contact your primary doctor for a follow-u p. Return to the emergency department for new or worsening symptoms. Prescriptions: New peg 3350-electrolytes [GaviLyte-G] 236-22.74-6.74 -5.86 gram recon soln 240 ml PO Q10M Qty: 4000 0RF Rx Instructions: until fecal effluent is clear No Action testosterone [AndroGel] 1 % gel in packet 10 % TP Q DAY Qty: 60 3RF levothryoxine PO rosuvastatin 5 mg tablet 5 mg PO DAILY bridger inhalation BID tamsulosin 0.4 mg capsule 0.4 mg PO BEDTIME Qty: 90 3RF Referrals: Herminia Valladares MD [Primary Care Provider] - Stand Alone Forms: Patient Portal/API
[2023-01-11 17:04] LABS: Add Manual Diff / Slide Review NO; Basophils Absolute Auto 100 /uL (0-100); Basophils Percent Auto 0.9 % (0-2); Eosinophils Absolute Auto 300 /uL (0-450); Hematocrit 49.4 % (41-53); Hemoglobin 16.9 g/dL (13.5-17.5); Lymphocytes Absolute Auto 1300 /uL (1100-4500); Lymphocytes Percent Auto 20.2 % (25-40); Mean Corpuscular HGB Conc 34.3 % (30-36); Mean Corpuscular Volume 93.3 fL (80-100); Monocytes Absolute Auto 500 /uL (0-900); Monocytes Percent Auto 7.5 % (3-14); Neutrophils Absolute Auto 4200 /uL (1500-7000); Neutrophils Percent Auto 66.4 % (50-75); Platelet Count 188 X10^3/uL (150-400); Red Blood Cell Count 5.29 X10^6/uL (4.5-5.9); White Blood Cell Count 6.4 X10^3/uL (4.5-11.0)
[2023-01-11 17:15] LABS: Alanine Aminotransferase 16 IU/L (<50); Albumin 4.6 g/dL (3.5-5.0); Albumin Globulin Ratio 1.4 (1.0-2.8); Alkaline Phosphatase 70 U/L (38-126); Aspartate Aminotransferase 30 IU/L (17-59); BUN Creatinine Ratio 13.7 (6-22); Bilirubin Total 0.9 mg/dL (0.2-1.3); Blood Urea Nitrogen 14 mg/dL (9-20); Calcium 9.5 mg/dL (8.4-10.2); Carbon Dioxide 24 mmol/L (22-32); Chloride 100 mmol/L (98-107); Estimated Glomerular Filt Rate > 60 mL/min (>60); Globulin 3.4 g/dL (1.7-4.1); Glucose 89 mg/dL (80-110); HEMOLYSIS 43 (0-50); Lipase 100 U/L (23-300); Potassium 4.2 mmol/L (3.4-5.1); Sodium 134 mmol/L (137-145)
--- NOTE | 2023-01-11 17:23 | DI.CT.S_ITS ---
PROCEDURE: CT ABDOMEN PELVIS W CON INDICATIONS: Decreased appetite with abdominal bloating TECHNIQUE: After the administration of intravenous contrast, axial sections acquired from the lung bases to the pubic symphysis. Coronal and sagittal reformats were performed. For radiation dose reduction, the following was used: automated exposure control, adjustment of mA and/or kV according to patient size. COMPARISON: [facility], CT, ABDOMEN/PELVIS WITH CONTRAST, 08/08/2015, 9:46. FINDINGS: Image quality: Excellent. Lung bases: Unremarkable. Heart: No significant findings. ABDOMEN: Liver: Unremarkable. Gallbladder: Gallbladder sludge versus small stones. No wall thickening or pericholecystic edema to suggest acute cholecystitis. Biliary ducts: Unremarkable. Pancreas: Unremarkable. Spleen: Unremarkable. Adrenal Glands: Unremarkable. Kidneys and Ureters: Similar ureterectasis. Nonobstructing stone on the superior calyx of the right kidney. Stomach and Bowel: Large colonic stool and gas load. Peritoneum: No abnormal intraperitoneal fluid. No free air. Ventral Wall: No hernias. Abdominal Nodes: No retroperitoneal or mesenteric adenopathy by size criteria. Vessels: Aorta and inferior vena cava are normal in size. PELVIS: Pelvic Organs: Prostatomegaly. Bladder: Unremarkable. Pelvic Nodes: No enlarged lymph nodes. Miscellaneous: No hernias are seen. Bones: Unremarkable. IMPRESSION: Large colonic stool and gas load. Similar bilateral ureterectasis, with prostatomegaly. Findings may indicate chronic outlet obstruction. Dictated by: Jag Infante M.D. on 01/11/2023 at 17:49 Approved by: Jag Infante M.D. on 01/11/2023 at 17:52
[2023-01-11 18:23] VITALS: BP 142/82; PULSE 75; RESP 16; O2SAT 95
== END 2023-01-11 18:23 | disposition home or self-care (01) ==
PROVIDERS: Emergency Provider Emergency Medicine; PCP Internal Medicine
DX: K59.00 Constipation, unspecified (principal)
CPT/HCPCS: 36415; 74177; 80053; 81003; 83690; 85025; 99284

== ENCOUNTER → 2024-02-16 09:24 | Outpatient (CLI) | payer MEDICARE, SELFPAY ==
[2024-02-16 11:51] LABS: Prostate Specific Antigen 0.806 ng/mL (0.10-4.00)
== END ==
PROVIDERS: PCP Internal Medicine; Referring Provider Urology; Visit Provider Urology
DX: N40.1 Benign prostatic hyperplasia with lower urinary tract symptoms (principal); N13.8 Other obstructive and reflux uropathy
CPT/HCPCS: 36415; 84153

== ENCOUNTER → 2024-03-06 08:35 | Outpatient (CLI) | payer MEDICARE, SELFPAY | PROVIDERS: PCP Internal Medicine; Referring Provider Internal Medicine Critical Care Medicine; Visit Provider Internal Medicine Critical Care Medicine | DX: R06.02 Shortness of breath (principal); R94.2 Abnormal results of pulmonary function studies; J45.40 Moderate persistent asthma, uncomplicated | CPT/HCPCS: 94060; 94726; 94729 ==

== ENCOUNTER 2025-02-07 13:49 | Day surgery (SDC) | payer MEDICARE, SELFPAY ==
--- NOTE | 2025-02-07 | PATH_ITS ---
[facility] Accession Number: [id number] No. of containers..03 Tissue . 01 Material submitted: . PART A: duodenum - DUODENUM PART B: gastrointestinal site - ANTRUM PART C: esophagus - ESOPHAGEAL . 01 Diagnosis: A. DUODENUM, BIOPSY: Gastric heterotopia. Negative for features of sprue, dysplasia, or malignancy. . B. GASTRIC ANTRUM, BIOPSY: Gastric antral mucosa with mild chronic inflammation. Negative for Helicobacter organisms by immunohistochemistry. Negative for intestinal metaplasia. Negative for dysplasia or malignancy. . C. ESOPHAGUS, BIOPSY: Squamous mucosa with no diagnostic abnormality. Intraepithelial eosinophils are not increased. Negative for dysplasia and malignancy. MRV 02/21/2025 1402 Local . 01 Electronically signed: . Ronald Elizabeth MD, PhD, Pathologist NPI- [id number] . 01 Gross description: . A. Received in formalin with two identifiers and duodenum biopsy, are two vasquez soft tissue fragments 0.3 to 0.4 cm in greatest dimension. Submitted entirely in cassette A1. B. Received in formalin with two identifiers and antrum biopsy, are two vasquez soft tissue fragments 0.4 cm each in greatest dimension. Submitted entirely in cassette B1. C. Received in formalin with two identifiers and esophageal biopsy, are two white soft tissue fragments 0.2 to 0.3 cm in greatest dimension. Submitted entirely in cassette C1. ([id number]) /BEBA 02/14/2025 1050 Local . 01 Microscopic: . B. An immunohistochemical stain was performed to evaluate for Helicobacter organisms and is negative. The control stain showed appropriate reactivity. . * This test was developed and the performance characteristics were validated by [employer]. It has not been cleared or approved by the [place]. Food and Drug Administration. . 01 Pathologist provided ICD-10: K31.7, K29.70 . 01 CPT . 263961, 714033, 193484, [id number] Performed at: [address] [id number] MD Gilson Rojas MD Phone: [phone]
--- NOTE | 2025-02-07 07:06 | PM.PREOP ---
Pre-operative Note Interval Note History & Physical reviewed/Exam performed by Physician: Yes Changes to H&P: No ASA Class (for procedural sedation): II
[2025-02-07 14:05] VITALS: BP 128/72; PULSE 56; RESP 16; TEMP 36.1; O2SAT 98
[2025-02-07] MEDS: LACTATED RINGERS 1,000 ML 42 ML IV (14:18)
--- NOTE | 2025-02-07 15:40 | PM.OP.EGD ---
Operative Date/Time/Diagnoses Date of procedure: 02/07/25 Time of procedure: 16:04 Pre-op diagnosis: Dysphagia, peptic stricture Post-op diagnosis: same Procedure & Clinicians Study performed: EGD with biopsy, dilation peptic stricture Same procedure(s) as scheduled: Yes Indications: 69yo M, h/o peptic stricture, dysphagia Surgeon: Jairo Schaefer Anesthesia Type: MAC +/- Procedure Notes SCOAP/Timeout: Performed Procedure in detail: EGD Informed consent was obtained. The procedure, its risks, benefits, and alternatives were discussed. Patient understood and agreed to proceed. The patient was placed in the left lateral decubitus position with head elevated. Sedation given per anesthesia. The video endoscope was inserted into the oropharynx and guided under direct vision into the esophagus, stomach, and duodenum which were carefully examined. The scope was retroflexed to examine the hiatus and gastroesophageal junction. Antral biopsies were obtained for Helicobacter pylori. The patient tolerated the procedure very well. There were no apparent complications. Significant EGD findings: Z-line noted at: 37cm Moderate duodenitis, biopsied Moderate antral gastritis, biopsied Distal esophagitis, LA Grade B, long red streaks extending 5cm proximally, biopsied Distal esophageal stricture, scope easily passes, dilated 15 to 18mm; 3 to 7ATM; 45 to 54 FR; 30 second pauses at each interval, stricture stable after dilation Findings: gastritis and stricture Specimen(s): other (biopsies) Estimated Blood Loss: 10 Complications: none Impression: Antral gastritis, duodenitis LA Grade B esophagitis Biopsies pending Stricture dilated to 18mm Post-procedure Recommendations: Will call with biopsy results Plan for aftercare: PACU then home Follow up: as needed Disposition: PACU
[2025-02-07 16:03] VITALS: BP 103/57; PULSE 63; RESP 16; TEMP 36.9; O2SAT 97
[2025-02-07 16:08] VITALS: BP 116/62; PULSE 57; RESP 16; TEMP 36.9; O2SAT 97
[2025-02-07 16:13] VITALS: BP 117/68; PULSE 57; RESP 16; TEMP 36.9; O2SAT 97
[2025-02-07 16:22] VITALS: BP 132/68; PULSE 62; RESP 16; TEMP 36.9; O2SAT 99
[2025-02-07 16:33] VITALS: BP 132/68; PULSE 51; RESP 16; O2SAT 98
== END 2025-02-07 16:37 | disposition home or self-care (01) ==
PROVIDERS: PCP Internal Medicine; Referring Provider Surgery; Visit Provider Surgery
PROC: 0DJ08ZZ Inspection of Upper Intestinal Tract, Via Natural or Artificial Opening Endoscopic (ICD-10-PCS; CPT 43249; principal; 2025-02-07 15:00)
DX: R13.10 Dysphagia, unspecified (principal); K21.9 Gastro-esophageal reflux disease without esophagitis; K22.2 Esophageal obstruction; K29.80 Duodenitis without bleeding; K20.90 Esophagitis, unspecified without bleeding; K29.50 Unspecified chronic gastritis without bleeding
CPT/HCPCS: 43249; 43239; J2704; J7120

== ENCOUNTER → 2025-02-25 10:14 | Outpatient (CLI) | payer MEDICARE, SELFPAY ==
[2025-02-25 17:26] LABS: Prostate Specific Antigen 0.493 ng/mL (0.10-4.00)
== END ==
PROVIDERS: PCP Internal Medicine; Referring Provider Internal Medicine; Visit Provider Urology
DX: Z12.5 Encounter for screening for malignant neoplasm of prostate (principal)
CPT/HCPCS: 36415; 84153